=== PATIENT | female | born 1995 | race Caucasian/White ===

== ENCOUNTER → 2016-05-25 | Outpatient (CLI) | payer BC | END | disposition home or self-care (01) | LOC: CFH 06:47 | PROVIDERS: ATTEND Orthopaedic Surgery | DX: S83.241A Other tear of medial meniscus, current injury, right knee, initial encounter (principal); M70.50 Other bursitis of knee, unspecified knee; M76.51 Patellar tendinitis, right knee; S83.232A Complex tear of medial meniscus, current injury, left knee, initial encounter ==